=== PATIENT | female | born 1990 | race Caucasian/White ===

== ENCOUNTER 2017-03-24 16:55 | Emergency (ER) | payer SELFPAY ==
[~2017-03-24] VITALS: Ht 165.1 cm; Wt 90.7 kg
[~2017-03-24 16:55] MED LIST: ERYT1OIN6 OS; OFLO5DRO OS
[2017-03-24 17:05] VITALS: BP 138/87
[2017-03-24] MEDS ORDERED: ERYT1OIN6 OP (17:58)
--- NOTE | 2017-03-24 17:58 | PHYS DOC ---
Past Medical History Past Medical History: No Pertinent History Past Surgical History: No Surgical History Alcohol Use: Occasionally Drug Use: None Adult General Chief Complaint Chief Complaint: EYE PROBLEMS HPI HPI Patient is a 26 year old female who presents with chronic left eye pain from corneal abrasion 1 year ago. Patient denies any new injuries. Denies any vision loss. She states her pain is mostly in the inner upper eyelid. Review of Systems Review of Systems Constitutional: Denies fever or chills [] Eyes: Left eye pain from chronic corneal abrasion Musculoskeletal: Denies back pain or joint pain [] Integument: Denies rash or skin lesions [] Neurologic: Denies headache, focal weakness or sensory changes [] Allergies Allergies Allergies Coded Allergies Type Severity Reaction Last Updated Verified No Known Drug Allergies 04/03/14 No Physical Exam Physical Exam Constitutional: Well developed, well nourished, no acute distress, non-toxic appearance. [] HENT: Normocephalic, atraumatic, bilateral external ears normal, oropharynx moist, no oral exudates, nose normal. [] Eyes: PERRLA, EOMI, conjunctiva normal, no discharge. [] Skin: Warm, dry, no erythema, no rash. [] Neurologic: Alert and oriented X 3, normal motor function, normal sensory function, no focal deficits noted. [] Psychologic: Affect normal, judgement normal, mood normal. [] Current Patient Data Vital Signs Vital Signs Date Time Temp Pulse Resp B/P (MAP) Pulse Ox O2 Delivery O2 Flow Rate FiO2 03/24/17 17:05 98.0 56 16 97 Room Air 98.0 EKG EKG [] Radiology/Procedures Radiology/Procedures [] Course & Med Decision Making Course & Med Decision Making Pertinent Labs and Imaging studies reviewed. (See chart for details) Patient is in the ED with chronic left upper eye pain from a chronic corneal abrasion. Discharged with erythromycin eye ointment. She has an records clerk with an appointment tomorrow. Recommended she make sure she follows up. Andreaon Disclaimer Andreaon Disclaimer This electronic medical record was generated, in whole or in part, using a voice recognition dictation system. Departure Departure Impression: Primary Impression: Corneal abrasion Disposition: 01 HOME, SELF-CARE Condition: STABLE Referrals: NO PCP (PCP) Follow-up with your records clerk tomorrow Patient Instructions: Eye - Corneal Abrasion, [id number] Additional Instructions: You were seen for chronic left eye pain from a corneal abrasion 1 year ago. We highly recommend you follow-up with the records clerk tomorrowCome back to the emergency room at any point symptoms worsen. Scripts Erythromycin Base (Erythromycin) 1 Gm Oint...g. 1 APPLIC OP Q4HRS W/A, #1 MISC for seven days Prov: ONELIA TRUJILLO APRN 03/24/17 Problem Qualifiers Primary Impression: Corneal abrasion Encounter type: initial encounter Laterality: left Qualified Codes: S05.02XA - Injury of conjunctiva and corneal abrasion without foreign body, left eye, initial encounter ONELIA TRUJILLO APRN Mar 24, 2017 17:58
== END 2017-03-24 18:00 | disposition home or self-care (01) ==
LOC: ER 16:55
DX: S05.02XA Injury of conjunctiva and corneal abrasion without foreign body, left eye, initial encounter (principal); G89.29 Other chronic pain; X58.XXXA Exposure to other specified factors, initial encounter; Y93.89 Activity, other specified; Y92.89 Other specified places as the place of occurrence of the external cause; Y99.8 Other external cause status
CPT/HCPCS: 99283

== ENCOUNTER 2018-09-08 10:58 | Emergency (ER) | payer MEDICAID ==
[~2018-09-08] VITALS: Ht 165.1 cm; Wt 99.8 kg
[~2018-09-08 10:58] MED LIST changes: +ERYT1OIN6 OP
[2018-09-08 11:18] VITALS: BP 137/85
[2018-09-08 12:51] LABS: BASO # 0.1 x10^3/uL (0.0-0.2); BASO % 1 % (0-3); EOS # 0.1 x10^3/uL (0.0-0.7); EOS % 1 % (0-3); HEMATOCRIT 38.8 % (36.0-47.0); HEMOGLOBIN 12.7 g/dL (12.0-15.5); LYMPH # 1.7 x10^3/uL (1.0-4.8); LYMPH % 14 % (24-48); MEAN CORPUSCULAR HEMOGLOBIN 28 pg (25-35); MEAN CORPUSCULAR HGB CONC 33 g/dL (31-37); MEAN CORPUSCULAR VOLUME 85 fL (79-100); MONO % 8 % (0-9); NEUT # 9.5 x10^3uL (1.8-7.7); NEUT % 77 % (31-73); PLATELET COUNT 461 x10^3/uL (140-400); RED BLOOD COUNT 4.58 x10^6/uL (3.50-5.40); RED CELL DISTRIBUTION WIDTH 13.6 % (11.5-14.5); WHITE BLOOD COUNT 12.4 x10^3/uL (4.0-11.0)
[2018-09-08 12:58] LABS: CALCIUM 9.1 mg/dL (8.5-10.1); CREATININE 0.8 mg/dL (0.6-1.0); GFR 86.7
[2018-09-08 13:02] LABS: BILIRUBIN,URINE NEGATIVE (NEG); CLARITY,URINE CLEAR; COLOR,URINE YELLOW; NITRITE,URINE NEGATIVE (NEG); PH,URINE 6.5; PROTEIN,URINE NEGATIVE (NEG-TRACE)
[2018-09-08 13:07] LABS: SQUAMOUS EPITHELIAL CELL,UR MANY /LPF
[2018-09-08 13:08] LABS: BACTERIA,URINE FEW /HPF (0-FEW); RBC,URINE 0 /HPF (0-2); WBC,URINE RARE /HPF (0-4)
[2018-09-08 13:09] LABS: BARBITURATES NEG (NEG); BENZODIAZEPINES NEG (NEG); CANNABINOIDS POS (NEG); COCAINE NEG (NEG); METHADONE NEG (NEG); OPIATES NEG (NEG); PHENCYCLIDINE NEG (NEG)
[2018-09-08 13:19] LABS: AMPHETAMINE/METHAMPHETAMINE NEG (NEG)
--- NOTE | 2018-09-08 13:28 | RAD ---
PROCEDURE: CHEST PA LATERAL CLINICAL INDICATION: PALPITATIONS, ANXIETY, CHEST TIGHTNESS TODAY COMPARISON: None FINDINGS: No pneumothorax identified. Cardiac and mediastinal contours unremarkable. No pulmonary consolidation or acute airspace disease. No acute osseous abnormalities identified. IMPRESSION: No pulmonary consolidation or acute airspace disease. Electronically signed by: Dav Delarosa DO (09/08/2018 1:25 PM) [id number]
--- NOTE | 2018-09-08 13:47 | PHYS DOC ---
Past Medical History Past Medical History: No Pertinent History Past Surgical History: No Surgical History Alcohol Use: Occasionally Drug Use: Marijuana Adult General Chief Complaint Chief Complaint: RAPID HEART RATE HPI HPI Patient is a 27 year old patient states today she was at home, she states she felt her heart was racing. Patient denies anything making her symptoms better or worse. Denies any chest pain. Denies any shortness of breath. Denies any use of hormones. Denies any unilateral leg pain. Denies any cough or shortness of breath. Denies any recent hospitalizations or surgery. Denies any chance she is . Review of Systems Review of Systems Constitutional: Denies fever or chills [] Eyes: Denies change in visual acuity, redness, or eye pain [] HENT: Denies nasal congestion or sore throat [] Respiratory: Denies cough or shortness of breath [] Cardiovascular: Reports palpitations. GI: Denies abdominal pain, nausea, vomiting, bloody stools or diarrhea [] : Denies dysuria or hematuria [] Musculoskeletal: Denies back pain or joint pain [] Integument: Denies rash or skin lesions [] Neurologic: Denies headache, focal weakness or sensory changes [] All other systems were reviewed and found to be within normal limits, except as documented in this note. Allergies Allergies Allergies Coded Allergies Type Severity Reaction Last Updated Verified No Known Drug Allergies 04/03/14 No Physical Exam Physical Exam Constitutional: Well developed, well nourished, no acute distress, non-toxic appearance. [] HENT: Normocephalic, atraumatic, bilateral external ears normal, oropharynx moist, no oral exudates, nose normal. [] Eyes: PERRLA, EOMI, conjunctiva normal, no discharge. [] Neck: Normal range of motion, no tenderness, supple, no stridor. [] Cardiovascular:Heart rate regular rhythm, no murmur [] Lungs & Thorax: Bilateral breath sounds clear to auscultation [] Abdomen: Bowel sounds normal, soft, no tenderness, no masses, no pulsatile masses. [] Skin: Warm, dry, no erythema, no rash. [] Back: No tenderness, no CVA tenderness. [] Extremities: No tenderness, no cyanosis, no clubbing, ROM intact, no edema. [] Neurologic: Alert and oriented X 3, normal motor function, normal sensory function, no focal deficits noted. [] Psychologic: Affect normal, judgement normal, mood normal. [] Current Patient Data Vital Signs Vital Signs Date Time Temp Pulse Resp B/P (MAP) Pulse Ox O2 Delivery O2 Flow Rate FiO2 09/08/18 11:18 97.7 97 28 137/85 (102) 97 Room Air 97.7 Lab Values Laboratory Tests Test 09/08/18 12:14 09/08/18 12:45 09/08/18 12:55 09/08/18 13:00 Urine Collection Type Unknown Urine Color Yellow Urine Clarity Clear Urine pH 6.5 Urine Specific Garretson >=1.030 Urine Protein Negative mg/dL (NEG-TRACE) Urine Glucose (UA) Negative mg/dL (NEG) Urine Ketones (Stick) Trace mg/dL (NEG) Urine Blood Negative (NEG) Urine Nitrite Negative (NEG) Urine Bilirubin Negative (NEG) Urine Urobilinogen Dipstick 1.0 mg/dL (0.2 mg/dL) Urine Leukocyte Esterase Negative (NEG) Urine RBC 0 /HPF (0-2) Urine WBC Rare /HPF (0-4) Urine Squamous Epithelial Cells Many /LPF Urine Bacteria Few /HPF (0-FEW) Urine Mucus Marked /LPF Urine Opiates Screen Neg (NEG) Urine Methadone Screen Neg (NEG) Urine Barbiturates Neg (NEG) Urine Phencyclidine Screen Neg (NEG) Urine Amphetamine/Methamphetamine Neg (NEG) Urine Benzodiazepines Screen Neg (NEG) Urine Cocaine Screen Neg (NEG) Urine Cannabinoids Screen Pos (NEG) Urine Ethyl Alcohol Neg (NEG) White Blood Count 12.4 x10^3/uL (4.0-11.0) H Red Blood Count 4.58 x10^6/uL (3.50-5.40) Hemoglobin 12.7 g/dL (12.0-15.5) Hematocrit 38.8 % (36.0-47.0) Mean Corpuscular Volume 85 fL (79-100) Mean Corpuscular Hemoglobin 28 pg (25-35) Mean Corpuscular Hemoglobin Concent 33 g/dL (31-37) Red Cell Distribution Width 13.6 % (11.5-14.5) Platelet Count 461 x10^3/uL (140-400) H Neutrophils (%) (Auto) 77 % (31-73) H Lymphocytes (%) (Auto) 14 % (24-48) L Monocytes (%) (Auto) 8 % (0-9) Eosinophils (%) (Auto) 1 % (0-3) Basophils (%) (Auto) 1 % (0-3) Neutrophils # (Auto) 9.5 x10^3uL (1.8-7.7) H Lymphocytes # (Auto) 1.7 x10^3/uL (1.0-4.8) Monocytes # (Auto) 1.0 x10^3/uL (0.0-1.1) Eosinophils # (Auto) 0.1 x10^3/uL (0.0-0.7) Basophils # (Auto) 0.1 x10^3/uL (0.0-0.2) Sodium Level 140 mmol/L (136-145) Potassium Level 4.0 mmol/L (3.5-5.1) Chloride Level 102 mmol/L (98-107) Carbon Dioxide Level 26 mmol/L (21-32) Anion Gap 12 (6-14) Blood Urea Nitrogen 12 mg/dL (7-20) Creatinine 0.8 mg/dL (0.6-1.0) Estimated GFR (Cockcroft-Gault) 86.7 Glucose Level 103 mg/dL (70-99) H Calcium Level 9.1 mg/dL (8.5-10.1) Ethyl Alcohol Level < 10 mg/dL (0-10) POC Urine HCG, Qualitative Hcg negative (Negative) D-Dimer (Anais) < 0.27 ug/mlFEU Laboratory Tests 09/08/18 12:45 Laboratory Tests 09/08/18 12:45 EKG EKG 12:[address] Metcalf sinus rhythm heart rate 89[] Radiology/Procedures Radiology/Procedures [] Course & Med Decision Making Course & Med Decision Making Pertinent Labs and Imaging studies reviewed. (See chart for details) This is a 27-year-old female patient presented to the ED today complaining of palpitations. Her workup is negative. D-dimer is normal. Patient was discharged to home with instructions to follow-up with a wine and spirits clerk which we provided. Provided return precautions and discharged in stable condition. Dragon Disclaimer Dragon Disclaimer This electronic medical record was generated, in whole or in part, using a voice recognition dictation system. Departure Departure Impression: Primary Impression: Palpitations Disposition: HOME, SELF-CARE Condition: STABLE Referrals: NO PCP (PCP) ROSALEE MARCOS MD Follow-up in one week Patient Instructions: Palpitations, [id number] Additional Instructions: You were evaluated in the ER for palpitations. We encourage you to establish care with a wine and spirits clerk and follow-up as an outpatient. Please return to the ED at any time symptoms worsen. ONELIA TRUJILLO APRN Sep 08, 2018 13:47
--- NOTE | 2018-09-08 13:58 | EKG ---
[facility] [address] [place] [address] Test Date: 2018-09-08 Test Time: 12:37:26 Pat Name: GOPI GAXIOLA Department: Room: Gender: F Direct Care Staffer: : 1990 Requested By: ONELIA TRUJILLO Order Number: [id number] Reading MD: Tavo Voss MD Measurements Intervals [place] Rate: 89 P: 32 FL: 148 QRS: 26 QRSD: 82 T: -3 QT: 364 QTc: 444 Interpretive Statements SINUS RHYTHM Electronically Signed On 09-19-2018 12:14:01 [employer] by Tavo Voss MD
== END 2018-09-08 13:59 | disposition home or self-care (01) ==
LOC: ER 10:58
DX: R00.2 Palpitations (principal)
CPT/HCPCS: 36415; 71046; 80048; 80307; 81001; 81025; 85025; 85379; 93005; 99284; G0480

== ENCOUNTER 2018-09-20 17:56 | Emergency (ER) | payer BC ==
[~2018-09-20] VITALS: Ht 165.1 cm; Wt 99.8 kg
[2018-09-20 18:14] VITALS: BP 125/86
[2018-09-20] MEDS ORDERED: diazePAM 5 MG TABLET PO ONE (18:30)
[2018-09-20] MEDS ORDERED: ALPR0.5T PO (18:56)
--- NOTE | 2018-09-20 18:56 | PHYS DOC ---
Past Medical History Past Medical History: No Pertinent History, Anxiety (ONELIA TRUJILLO APRN) Past Surgical History: No Surgical History (ONELIA TRUJILLO APRN) Alcohol Use: Occasionally Drug Use: Marijuana (ONELIA TRUJILLO APRN) Adult General Chief Complaint Chief Complaint: ANXIETY/PANIC ATTACK [facility] HPI Patient is a 27 year old female with hx of anxiety/panic attacks who presents with anxiety and panic attack that began this evening. Patient states she does not know what triggered her symptoms this time. She states she was just at home and started feeling short of air, she states her fingers were tingling, she states her heart was racing, she states her whole face became numb. Patient is crying out loud on arrival to the ED. She appears very anxious and panic mode. She was seen in the ED 2 weeks ago for similar complaints and had a full workup including EKG and d-dimer which did not show anything acute, she followed up with her own PCP who started on Zoloft 2 days ago. She states the Zoloft has not kicked in that her panic attacks has started. Patient denies any suicidal or homicidal ideations. (ONELIA TRUJILLO APRN) Review of Systems Review of Systems Constitutional: Denies fever or chills [] Eyes: Denies change in visual acuity, redness, or eye pain [] HENT: Denies nasal congestion or sore throat [] Respiratory: Denies cough or shortness of breath [] Cardiovascular: No additional information not addressed in HPI [] GI: Denies abdominal pain, nausea, vomiting, bloody stools or diarrhea [] : Denies dysuria or hematuria [] Musculoskeletal: Denies back pain or joint pain [] Integument: Denies rash or skin lesions [] Neurologic: Denies headache, focal weakness or sensory changes [] pysch: Anxiety/panic attack All other systems were reviewed and found to be within normal limits, except as documented in this note. (ONELIA TRUJILLO APRN) Current Medications Current Medications Current Medications Medications (Trade) Dose Ordered Sig/Linda Start Time Stop Time Status Last Admin Dose Admin Diazepam (Valium) 5 mg 1X ONCE 09/20/18 18:30 09/20/18 18:31 DC 09/20/18 18:27 5 MG (CHASITY GARCIA DO) Allergies Allergies Allergies Coded Allergies Type Severity Reaction Last Updated Verified No Known Drug Allergies 04/03/14 No (CHASITY GARCIA DO) Physical Exam Physical Exam Constitutional: Well developed, well nourished, no acute distress, non-toxic appearance. [] HENT: Normocephalic, atraumatic, bilateral external ears normal, oropharynx moist, no oral exudates, nose normal. [] Eyes: PERRLA, EOMI, conjunctiva normal, no discharge. [] Neck: Normal range of motion, no tenderness, supple, no stridor. [] Cardiovascular:Heart rate regular rhythm, no murmur [] Lungs & Thorax: Bilateral breath sounds clear to auscultation [] Abdomen: Bowel sounds normal, soft, no tenderness, no masses, no pulsatile masses. [] Skin: Warm, dry, no erythema, no rash. [] Back: No tenderness, no CVA tenderness. [] Extremities: No tenderness, no cyanosis, no clubbing, ROM intact, no edema. [] Neurologic: Alert and oriented X 3, normal motor function, normal sensory function, no focal deficits noted. [] Psychologic: Appears anxious, hyperventilating on arrival, crying out loud (ONELIA TRUJILLO APRN) Current Patient Data Vital Signs Vital Signs Date Time Temp Pulse Resp B/P (MAP) Pulse Ox O2 Delivery O2 Flow Rate FiO2 09/20/18 18:14 97.8 68 26 125/86 (99) 99 Room Air 97.8 (CHASITY GARCIA DO) EKG EKG [] (ONELIA TRUJILLO APRN) Radiology/Procedures Radiology/Procedures [] (ONELIA TRUJILLO APRN) Course & Med Decision Making Course & Med Decision Making Pertinent Labs and Imaging studies reviewed. (See chart for details) This is a 27-year-old female patient with new diagnosis of anxiety attack who presents to the ED today in an anxiety attack and panic morning. See history of present illness. Her symptoms recurred this evening she is panic mode on arrival. She was seen in the ED 2 weeks ago by me, we worked her up, she followed up with her PCP who started her on Zoloft 2 days ago. Vitals on arrival to the ED temperature 97.8 at 68 respiration 26 on room air blood pressure 125/86 O2 sats 99% on room air. Patient was given Valium. She calmed down. She was discharged with Xanax as needed for couple days until her xanax kicks in. I recommended she follows up with her own PCP in the course of this week or next week. (ONELIA TRUJILLO APRN) Chan Disclaimer Dragon Disclaimer This electronic medical record was generated, in whole or in part, using a voice recognition dictation system. (OENLIA TRUJILLO APRN) Departure Departure Impression: Primary Impression: Generalized anxiety disorder with panic attacks Disposition: 01 HOME, SELF-CARE Condition: STABLE Referrals: NO PCP (PCP) follow up with your doctor in the next 3-7 days Patient Instructions: Anxiety and Panic Attacks, [id number] Additional Instructions: You have evaluated in the emergency room for what appears to be an anxiety/ panic attack, continue taking his Zoloft. We wrote a prescription for Xanax, take it as needed for severe panic attack or anxiety attack. Follow-up with your doctor in the next 3-5 days. Come back to the ED at any point symptoms worsen. Scripts Alprazolam (XANAX) 0.5 Mg Tablet 1 TAB PO TID PRN for ANXIETY / AGITATION, #6 TAB Prov: ONELIA TRUJILLO APRN 09/20/18 Attending Signature Attending Signature I have reviewed the PA/GREEN TIRE INSPECTOR's note and plan of care. I was available for consultation as needed during the patient's visit in the emergency department. I agree with the clinical impression, plan, and disposition. (CHASITY GARCIA DO) ONELIA TRUJILLO APRN Sep 20, 2018 18:56 CHASITY GARCIA DO Sep 21, 2018 05:14
== END 2018-09-20 19:07 | disposition home or self-care (01) ==
LOC: ER 17:56
DX: F41.0 Panic disorder [episodic paroxysmal anxiety] (principal); R06.4 Hyperventilation; R20.2 Paresthesia of skin
CPT/HCPCS: 99284

== ENCOUNTER 2019-04-15 13:40 | Emergency (ER) | payer BC, MEDICAID ==
[~2019-04-15] VITALS: Ht 165.1 cm; Wt 129.3 kg
[~2019-04-15 13:40] MED LIST changes: +ALPR0.5T PO
[2019-04-15] MEDS ORDERED: IV NORMAL SALINE 1000ML BAG 1,000 ML IV SCH (13:54)
--- NOTE | 2019-04-15 14:26 | RAD ---
EXAM: Chest, single view. HISTORY: Chest pain. COMPARISON: 09/08/2018 FINDINGS: A frontal view of the chest is obtained. There is mild interstitial prominence without oliver congestion. There is no consolidation, pleural effusion or pneumothorax. The heart is normal in size. IMPRESSION: Mild interstitial prominence likely due to relatively decreased lung volumes with associated vascular crowding and atelectasis. Electronically signed by: Jewels Driver MD (04/15/2019 2:23 PM) [facility]
[2019-04-15 14:28] LABS: BASO # 0.1 x10^3/uL (0.0-0.2); BASO % 1 % (0-3); EOS # 0.1 x10^3/uL (0.0-0.7); EOS % 1 % (0-3); HEMATOCRIT 33.3 % (36.0-47.0); HEMOGLOBIN 11.3 g/dL (12.0-15.5); LYMPH % 15 % (24-48); MEAN CORPUSCULAR HEMOGLOBIN 29 pg (25-35); MEAN CORPUSCULAR HGB CONC 34 g/dL (31-37); MEAN CORPUSCULAR VOLUME 85 fL (79-100); MONO % 8 % (0-9); NEUT # 9.8 x10^3/uL (1.8-7.7); NEUT % 76 % (31-73); PLATELET COUNT 444 x10^3/uL (140-400); RED BLOOD COUNT 3.94 x10^6/uL (3.50-5.40); RED CELL DISTRIBUTION WIDTH 14.2 % (11.5-14.5); WHITE BLOOD COUNT 12.9 x10^3/uL (4.0-11.0)
[2019-04-15 14:37] LABS: CREATININE 0.5 mg/dL (0.6-1.0); POTASSIUM 4.1 mmol/L (3.5-5.1)
--- NOTE | 2019-04-15 14:39 | PHYS DOC ---
Past Medical History Past Medical History: Anxiety, Other Additional Past Medical Histor: PANIC ATTACKS Past Surgical History: No Surgical History Alcohol Use: Occasionally Drug Use: Marijuana Adult General Chief Complaint Chief Complaint: CHEST PAIN HPI HPI Patient is a 28-year-old female who presents with complaint of left-sided chest discomfort that started about 45 minutes prior to her arrival. She states that it's in her left upper chest and describes the pain as like an ache and a little bit of pressure. She denies any nausea, vomiting or diaphoresis. Patient states that nothing seems to worsen or improve the discomfort. She denies any cough or shortness of breath. She does admit to a history of asthma. She also denies any fever.[] Review of Systems Review of Systems Constitutional: Denies fever or chills [] Respiratory: Denies cough or shortness of breath [] Cardiovascular: No additional information not addressed in HPI [] GI: Denies abdominal pain, nausea, vomiting or diarrhea [] All other systems were reviewed and found to be within normal limits, except as documented in this note. Current Medications Current Medications Current Medications Medications (Trade) Dose Ordered Sig/Linda Start Time Stop Time Status Last Admin Dose Admin Sodium Chloride 1,000 ml @ 1,000 mls/hr Q1H 04/15/19 13:54 04/15/19 14:53 DC 04/15/19 14:35 1,000 MLS/HR Allergies Allergies Allergies Coded Allergies Type Severity Reaction Last Updated Verified No Known Drug Allergies 04/03/14 No Physical Exam Physical Exam Constitutional: Well developed, well nourished, no acute distress, non-toxic appearance. [] HENT: Normocephalic, atraumatic, bilateral external ears normal, oropharynx moist, no oral exudates, nose normal. [] Eyes: PERRLA, EOMI, conjunctiva normal, no discharge. [] Neck: Normal range of motion, no tenderness, supple, no stridor. [] Cardiovascular: Regular rate and rhythm[] Lungs & Thorax: Bilateral breath sounds clear to auscultation [] Abdomen: Bowel sounds normal, soft, no tenderness. [] Skin: Warm, dry, no erythema, no rash. [] Extremities: No tenderness, no cyanosis, no clubbing, ROM intact. [] Neurologic: Alert and oriented X 3, no focal deficits noted. [] Current Patient Data Vital Signs Vital Signs Date Time Temp Pulse Resp B/P (MAP) Pulse Ox O2 Delivery O2 Flow Rate FiO2 04/15/19 13:42 98.6 88 20 129/80 (96) 98 Room Air 98.6 Lab Values Laboratory Tests Test 04/15/19 14:20 04/15/19 14:34 White Blood Count 12.9 x10^3/uL (4.0-11.0) H Red Blood Count 3.94 x10^6/uL (3.50-5.40) Hemoglobin 11.3 g/dL (12.0-15.5) L Hematocrit 33.3 % (36.0-47.0) L Mean Corpuscular Volume 85 fL (79-100) Mean Corpuscular Hemoglobin 29 pg (25-35) Mean Corpuscular Hemoglobin Concent 34 g/dL (31-37) Red Cell Distribution Width 14.2 % (11.5-14.5) Platelet Count 444 x10^3/uL (140-400) H Neutrophils (%) (Auto) 76 % (31-73) H Lymphocytes (%) (Auto) 15 % (24-48) L Monocytes (%) (Auto) 8 % (0-9) Eosinophils (%) (Auto) 1 % (0-3) Basophils (%) (Auto) 1 % (0-3) Neutrophils # (Auto) 9.8 x10^3/uL (1.8-7.7) H Lymphocytes # (Auto) 2.0 x10^3/uL (1.0-4.8) Monocytes # (Auto) 1.0 x10^3/uL (0.0-1.1) Eosinophils # (Auto) 0.1 x10^3/uL (0.0-0.7) Basophils # (Auto) 0.1 x10^3/uL (0.0-0.2) Sodium Level 139 mmol/L (136-145) Potassium Level 4.1 mmol/L (3.5-5.1) Chloride Level 104 mmol/L (98-107) Carbon Dioxide Level 27 mmol/L (21-32) Anion Gap 8 (6-14) Blood Urea Nitrogen 5 mg/dL (7-20) L Creatinine 0.5 mg/dL (0.6-1.0) L Estimated GFR (Cockcroft-Gault) 148.0 BUN/Creatinine Ratio 10 (6-20) Glucose Level 87 mg/dL (70-99) Calcium Level 9.0 mg/dL (8.5-10.1) Magnesium Level 1.8 mg/dL (1.8-2.4) Total Bilirubin 0.2 mg/dL (0.2-1.0) Aspartate Amino Transferase (AST) 8 U/L (15-37) L Alanine Aminotransferase (ALT) 10 U/L (14-59) L Alkaline Phosphatase 95 U/L (46-116) Troponin I Quantitative < 0.017 ng/mL (0.000-0.055) Total Protein 7.1 g/dL (6.4-8.2) Albumin 2.7 g/dL (3.4-5.0) L Albumin/Globulin Ratio 0.6 (1.0-1.7) L Urine Collection Type Unknown Urine Color Yellow Urine Clarity Clear Urine pH 7.0 Urine Specific Gibson <=1.005 Urine Protein Negative mg/dL (NEG-TRACE) Urine Glucose (UA) Negative mg/dL (NEG) Urine Ketones (Stick) Negative mg/dL (NEG) Urine Blood Negative (NEG) Urine Nitrite Negative (NEG) Urine Bilirubin Negative (NEG) Urine Urobilinogen Dipstick 0.2 mg/dL (0.2 mg/dL) Urine Leukocyte Esterase Negative (NEG) Urine RBC Occ /HPF (0-2) Urine WBC Occ /HPF (0-4) Urine Squamous Epithelial Cells Mod /LPF Urine Transitional Epithelial Cells Occ /LPF Urine Bacteria Few /HPF (0-FEW) Urine Mucus Slight /LPF Laboratory Tests 04/15/19 14:20 Laboratory Tests 04/15/19 14:20 EKG EKG [] Interpretation Time: EKG demonstrates normal sinus rhythm with rate of 83. Radiology/Procedures Radiology/Procedures [] Impressions: PROCEDURE: PORTABLE CHEST 1V EXAM: Chest, single view. HISTORY: Chest pain. COMPARISON: 09/08/2018 FINDINGS: A frontal view of the chest is obtained. There is mild interstitial prominence without oliver congestion. There is no consolidation, pleural effusion or pneumothorax. The heart is normal in size. IMPRESSION: Mild interstitial prominence likely due to relatively decreased lung volumes with associated vascular crowding and atelectasis. Electronically signed by: Jewels Driver MD (04/15/2019 2:23 PM) [facility] Course & Med Decision Making Course & Med Decision Making Pertinent Labs and Imaging studies reviewed. (See chart for details) [] Dragon Disclaimer Dragon Disclaimer This electronic medical record was generated, in whole or in part, using a voice recognition dictation system. Departure Departure Impression: Primary Impression: Atypical chest pain Disposition: HOME, SELF-CARE Condition: STABLE Referrals: ABBY CALVO APRN (PCP) Patient Instructions: Chest Pain (Nonspecific) MINDY BELL Jr. DO Apr 15, 2019 14:39
[2019-04-15 14:44] LABS: ALBUMIN 2.7 g/dL (3.4-5.0); ALBUMIN/GLOBULIN RATIO 0.6 (1.0-1.7); MAGNESIUM 1.8 mg/dL (1.8-2.4); TOTAL BILIRUBIN 0.2 mg/dL (0.2-1.0); TOTAL PROTEIN 7.1 g/dL (6.4-8.2)
[2019-04-15 14:50] LABS: BILIRUBIN,URINE NEGATIVE (NEG); CLARITY,URINE CLEAR; COLOR,URINE YELLOW; NITRITE,URINE NEGATIVE (NEG); PROTEIN,URINE NEGATIVE (NEG-TRACE); UROBILINOGEN,URINE 0.2 mg/dL (0.2 mg/dL)
[2019-04-15 15:22] LABS: SQUAMOUS EPITHELIAL CELL,UR MOD /LPF
[2019-04-15 15:23] LABS: BACTERIA,URINE FEW /HPF (0-FEW); RBC,URINE OCC /HPF (0-2); WBC,URINE OCC /HPF (0-4)
[2019-04-15 15:35] VITALS: BP 143/77
--- NOTE | 2019-04-16 11:35 | EKG ---
[facility] [address] [place] [address] Test Date: 2019-04-15 Test Time: 13:46:06 Pat Name: GOPI GAXIOLA Department: Room: Gender: F Bingo Floater: : 1990 Requested By: MINDY BELL Order Number: [id number] Reading MD: Tavo Voss MD Measurements Intervals [place] Rate: 82 P: 0 [place]: 122 QRS: 38 QRSD: 92 T: 3 QT: 368 QTc: 432 Interpretive Statements SINUS RHYTHM Electronically Signed On 04-25-2019 10:24:30 CDT by Tavo Voss MD
== END 2019-04-15 15:53 | disposition home or self-care (01) ==
LOC: ER 13:40
DX: R07.89 Other chest pain (principal); F41.9 Anxiety disorder, unspecified
CPT/HCPCS: 36415; 71045; 80053; 81001; 83735; 84484; 85025; 93005; 99285; J7030

== ENCOUNTER 2020-02-10 13:11 | Emergency (ER) | payer MEDICAID ==
[~2020-02-10] VITALS: Ht 165.1 cm; Wt 134.0 kg
[2020-02-10 13:59] LABS: BILIRUBIN,URINE NEGATIVE (NEG); CLARITY,URINE CLEAR; COLOR,URINE YELLOW; NITRITE,URINE NEGATIVE (NEG); PROTEIN,URINE NEGATIVE (NEG-TRACE); UROBILINOGEN,URINE 0.2 mg/dL (0.2 mg/dL)
[2020-02-10] MEDS ORDERED: ALPRAZolam 0.5 MG TABLET PO ONE (14:15)
[2020-02-10] MEDS ORDERED: IV NORMAL SALINE 1000ML BAG 1,000 ML IV ONE (14:15)
[2020-02-10 14:17] LABS: BACTERIA,URINE 0 /HPF (0-FEW); RBC,URINE 0 /HPF (0-2); SQUAMOUS EPITHELIAL CELL,UR MOD /LPF; WBC,URINE 0 /HPF (0-4)
[2020-02-10 14:52] LABS: BASO # 0.1 x10^3/uL (0.0-0.2); BASO % 1 % (0-3); EOS % 0 % (0-3); HEMATOCRIT 38.5 % (36.0-47.0); HEMOGLOBIN 13.6 g/dL (12.0-15.5); LYMPH # 2.3 x10^3/uL (1.0-4.8); LYMPH % 21 % (24-48); MEAN CORPUSCULAR HEMOGLOBIN 29 pg (25-35); MEAN CORPUSCULAR HGB CONC 35 g/dL (31-37); MEAN CORPUSCULAR VOLUME 83 fL (79-100); MONO # 0.9 x10^3/uL (0.0-1.1); MONO % 8 % (0-9); NEUT # 7.5 x10^3/uL (1.8-7.7); NEUT % 69 % (31-73); PLATELET COUNT 556 x10^3/uL (140-400); RED BLOOD COUNT 4.65 x10^6/uL (3.50-5.40); RED CELL DISTRIBUTION WIDTH 13.7 % (11.5-14.5); WHITE BLOOD COUNT 10.9 x10^3/uL (4.0-11.0)
[2020-02-10] MEDS ORDERED: ONDANSETRON PF 4 MG/2 ML VIAL. IVP ONE (15:00)
[2020-02-10 15:05] LABS: CALCIUM 9.2 mg/dL (8.5-10.1); CREATININE 0.9 mg/dL (0.6-1.0); GFR 74.6; POTASSIUM 3.6 mmol/L (3.5-5.1)
[2020-02-10 15:11] LABS: ALBUMIN 3.9 g/dL (3.4-5.0); ALBUMIN/GLOBULIN RATIO 0.9 (1.0-1.7); TOTAL BILIRUBIN 0.6 mg/dL (0.2-1.0); TOTAL PROTEIN 8.1 g/dL (6.4-8.2)
--- NOTE | 2020-02-10 16:59 | PHYS DOC ---
Past Medical History Past Medical History: Anxiety, Other Additional Past Medical Histor: PANIC ATTACKS Past Surgical History: Other Additional Past Surgical Histo: LEEP Smoking Status: Former Smoker Alcohol Use: Occasionally Drug Use: Marijuana General Adult EDM: Chief Complaint: DEHYDRATION HPI: HPI: Patient is a 29 year old female who presents with concerns of dehydration. Patient states she has been on phentermine for the past 2 months, and recently 2 days ago her primary care physician doubled her phentermine dose. Patient states since then she has been unable to sleep, feels like her mouth is dry even though she is drinking plenty of water, feels like her heart is beating fast. Patient denies any pain or discomfort. Patient states that she will only be on phentermine a short time until her gastric bypass surgery date arises. Patient denies any fever or chills or any concerns of COVID-19 exposure. Patient denies any visual changes, nasal congestion, cough, shortness of breath, chest pain or swelling of her extremities. Patient denies any abdominal pain, nausea, vomiting, diarrhea, constipation, or blood in her stools. Patient denies any problems urinating, any vaginal discharge, or any STI concerns. Patient denies any back pain or pain in her joints, skin rashes, headaches, focal weaknesses, or sensory changes. Patient denies any increased urination, or increased thirst, however does complain that her mouth is dry and is unable to relieve that with drinking more although states she does not necessarily feel like her thirst has increased. Patient denies any swelling of her glands, any recent life changes, depressions, anxieties, homicidal or suicidal ideations. Patient does state she has a history of anxiety that she takes Zoloft for at home. Review of Systems: Review of Systems: Constitutional: Denies fever or chills. Reports being unable to sleep at night. Eyes: Denies change in visual acuity. HENT: Denies nasal congestion or sore throat. Reports a dry mouth. Respiratory: Denies cough or shortness of breath. Cardiovascular: Denies chest pain or edema. Complains of rapid heart rate. GI: Denies abdominal pain, nausea, vomiting, bloody stools or diarrhea. : Denies dysuria. Musculoskeletal: Denies back pain or joint pain. Integument: Denies rash. Neurologic: Denies headache, focal weakness or sensory changes. Endocrine: Denies polyuria or polydipsia. Lymphatic: Denies swollen glands. Psychiatric: Denies depression or anxiety. Heart Score: Risk Factors: Risk Factors: DM, Current or recent (<one month) smoker, HTN, HLP, family history of CAD, obesity. Risk Scores: Score 0 - 3: 2.5% MACE over next 6 weeks - Discharge Home Score 4 - 6: 20.3% MACE over next 6 weeks - Admit for Clinical Observation Score 7 - 10: 72.7% MACE over next 6 weeks - Early Invasive Strategies Family History: Family History: Family history of obesity. Current Medications: Current Medications Medications (Trade) Dose Ordered Sig/Linda Start Time Stop Time Status Last Admin Dose Admin Alprazolam (Xanax) 0.5 mg 1X ONCE 02/10/20 14:15 02/10/20 14:18 DC 02/10/20 14:34 0.5 MG Ondansetron HCl (Zofran) 4 mg 1X ONCE 02/10/20 15:00 02/10/20 15:01 DC 02/10/20 14:53 4 MG Sodium Chloride 1,000 ml @ 1,000 mls/hr 1X ONCE 02/10/20 14:15 02/10/20 15:14 DC 02/10/20 14:37 1,000 MLS/HR Allergies: Allergies: Allergies Coded Allergies Type Severity Reaction Last Updated Verified No Known Drug Allergies 04/03/14 No Physical Exam: PE: Constitutional: Well developed, well nourished, no acute distress, non-toxic appearance. HENT: Normocephalic, atraumatic, bilateral external ears normal, oropharynx moist, no oral exudates, nose normal. Eyes: PERRLA, EOMI, conjunctiva normal, no discharge. Pupils 6 mm. Neck: Normal range of motion, no tenderness, supple, no stridor. Cardiovascular:Heart rate regular rhythm with tachycardia at rate of 102, no murmur, heart sounds S1-S2, no abnormalities noted per auscultation. Lungs & Thorax: Bilateral breath sounds clear to auscultation all lung walters. Abdomen: Bowel sounds normal all 4 quadrants, soft, no tenderness, no masses, no pulsatile masses. Skin: Warm, dry, no erythema, no rash. Back: No tenderness, no CVA tenderness. Extremities: No tenderness, no cyanosis, no clubbing, ROM intact, no edema. Neurologic: Alert and oriented X 3, normal motor function, normal sensory function, no focal deficits noted. Psychologic: Affect anxious but cooperative, judgement normal, mood normal. Current Patient Data: Labs: Laboratory Tests Test 02/10/20 13:25 02/10/20 13:36 02/10/20 14:40 Urine Collection Type Void Urine Color Yellow Urine Clarity Clear Urine pH 7.0 (<5.0-8.0) Urine Specific [place] <=1.005 (1.000-1.030) Urine Protein Negative mg/dL (NEG-TRACE) Urine Glucose (UA) Negative mg/dL (NEG) Urine Ketones (Stick) Negative mg/dL (NEG) Urine Blood Negative (NEG) Urine Nitrite Negative (NEG) Urine Bilirubin Negative (NEG) Urine Urobilinogen Dipstick 0.2 mg/dL (0.2 mg/dL) Urine Leukocyte Esterase Negative (NEG) Urine RBC 0 /HPF (0-2) Urine WBC 0 /HPF (0-4) Urine Squamous Epithelial Cells Mod /LPF Urine Bacteria 0 /HPF (0-FEW) POC Urine HCG, Qualitative Hcg negative (Negative) White Blood Count 10.9 x10^3/uL (4.0-11.0) Red Blood Count 4.65 x10^6/uL (3.50-5.40) Hemoglobin 13.6 g/dL (12.0-15.5) Hematocrit 38.5 % (36.0-47.0) Mean Corpuscular Volume 83 fL (79-100) Mean Corpuscular Hemoglobin 29 pg (25-35) Mean Corpuscular Hemoglobin Concent 35 g/dL (31-37) Red Cell Distribution Width 13.7 % (11.5-14.5) Platelet Count 556 x10^3/uL (140-400) H Neutrophils (%) (Auto) 69 % (31-73) Lymphocytes (%) (Auto) 21 % (24-48) L Monocytes (%) (Auto) 8 % (0-9) Eosinophils (%) (Auto) 0 % (0-3) Basophils (%) (Auto) 1 % (0-3) Neutrophils # (Auto) 7.5 x10^3/uL (1.8-7.7) Lymphocytes # (Auto) 2.3 x10^3/uL (1.0-4.8) Monocytes # (Auto) 0.9 x10^3/uL (0.0-1.1) Eosinophils # (Auto) 0.0 x10^3/uL (0.0-0.7) Basophils # (Auto) 0.1 x10^3/uL (0.0-0.2) Sodium Level 137 mmol/L (136-145) Potassium Level 3.6 mmol/L (3.5-5.1) Chloride Level 99 mmol/L (98-107) Carbon Dioxide Level 28 mmol/L (21-32) Anion Gap 10 (6-14) Blood Urea Nitrogen 7 mg/dL (7-20) Creatinine 0.9 mg/dL (0.6-1.0) Estimated GFR (Cockcroft-Gault) 74.6 BUN/Creatinine Ratio 8 (6-20) Glucose Level 96 mg/dL (70-99) Calcium Level 9.2 mg/dL (8.5-10.1) Total Bilirubin 0.6 mg/dL (0.2-1.0) Aspartate Amino Transferase (AST) 12 U/L (15-37) L Alanine Aminotransferase (ALT) 20 U/L (14-59) Alkaline Phosphatase 141 U/L (46-116) H Total Protein 8.1 g/dL (6.4-8.2) Albumin 3.9 g/dL (3.4-5.0) Albumin/Globulin Ratio 0.9 (1.0-1.7) L Laboratory Tests 02/10/20 14:40 Laboratory Tests 02/10/20 14:40 Vital Signs: Vital Signs Date Time Temp Pulse Resp B/P (MAP) Pulse Ox O2 Delivery O2 Flow Rate FiO2 02/10/20 13:37 98.1 121 18 145/94 (111) 98 Room Air 98.1 EKG: EKG: EKG performed at 1435 by ED nursing staff shows normal sinus rhythm without ectopy, reviewed by ED attending Dr. Gaspar shows no STEMI, no concerns for ACS. Radiology/Procedures: Radiology/Procedures: [] Course & Med Decision Making: Course & Med Decision Making Pertinent Labs and Imaging studies reviewed. (See chart for details) 29-year-old female rise to ER with concerns that she might be dehydrated. Vital signs reviewed, lab work ordered, EKG non-concerning for ACS. Patient's presentation and recent medication changes most likely anxiety induced by recent phentermine increase. Patient was given 1/2 mg Xanax p.o. which per patient statement helped her feel much better. Patient was given 4 mg of IV Zofran related to an acute onset of nausea and vomiting x1 during IV start which was most likely related to a vasovagal reaction. Patient recovered quickly, discussed findings with patient who agrees that symptoms are most likely related to her increase in phentermine from her physician. Patient discharge instructions were to call her primary care physician and discussed with him the current dosing with possible decrease in dose. Discussed with patient return to emergency department concerns. Patient was agreeable to discharge instructions, had no further questions or concerns. Chan Disclaimer: Chan Disclaimer: This electronic medical record was generated, in whole or in part, using a voice recognition dictation system. Departure Departure Impression: Primary Impression: Generalized anxiety disorder with panic attacks Disposition: 01 HOME, SELF-CARE Condition: GOOD Referrals: ABBY CALVO APRN (PCP) Patient Instructions: Anxiety and Panic Attacks Additional Instructions: Call your doctor soon related to possible interaction of your phentermine, return to the emergency department for any further concerns. Justicifation of Admission Dx: Justifications for Admission: Justification of Admission Dx: N/A CHASITY MORENO APRN Feb 10, 2020 16:59
[2020-02-10 17:37] VITALS: BP 140/84
--- NOTE | 2020-02-13 04:13 | EKG ---
[facility] [address] [place] [address] Test Date: 2020-02-10 Test Time: 14:35:48 Pat Name: GOPI GAXIOLA Department: Room: Gender: F Manager Emergency: : 1990 Requested By: CHASITY MORENO Order Number: [id number] Reading MD: Measurements Intervals Walsh Rate: 74 P: 38 IA: 150 QRS: 28 QRSD: 84 T: 26 QT: 376 QTc: 418 Interpretive Statements SINUS RHYTHM NORMAL ECG RI6.02 No previous ECG available for comparison
== END 2020-02-10 17:37 | disposition home or self-care (01) ==
LOC: ER 13:11
DX: F41.1 Generalized anxiety disorder (principal); F41.0 Panic disorder [episodic paroxysmal anxiety]; E86.0 Dehydration; Z87.891 Personal history of nicotine dependence
CPT/HCPCS: 36415; 80053; 81001; 81025; 85025; 96361; 96374; 99285; J2405; J7030; 93005